=== PATIENT | male | born 1965 | race African-American/Black ===

== ENCOUNTER 2019-05-20 11:11 | Inpatient (IN) | payer OTHER ==
--- NOTE | 2019-05-20 11:34 | BHS.RME ---
Substance Use & Tx History - Substance Use History Alcohol Substance amount: 3-4 pints [place] plus 12 beers Frequency of use: Daily Substance route: Oral Date of Last Use: 05/19/19 (10:30pm) Nicotine Substance amount: 1 pack Frequency of use: Daily Substance route: Smoking Date of Last Use: 05/20/19 Cocaine (Crack) Substance amount: 5 bags Frequency of use: Daily Substance route: Smoking Date of Last Use: 05/19/19 Physical/Psych/Mental Status - Behavior General Behavior: Increased activity (restlessness, agitation) Eye Contact: Normal - Cooperativeness Cooperativeness: Cooperative - Thinking Thought Processes: Tight, Logical, Goal Directed Thought content: Future oriented - Physical Health Problems Is patient presently having any pain?: No Does patient presently have any injuries (include location): No Does patient currently have a fever: No Is patient : No CIWA Nausea/Vomitin Muscle Tremors: 3 Anxiety: 3 Agitation: 3 Paroxysmal Sweats: 3 Orientation: 0-Oriented Tacttile Disturbances: 0-None Auditory Disturbances: 0-None Visual Disturbances: 0-None Headache: 2-Mild (last drank yesterday and was in [facility] overnight where he wasn't able to drink Brought in after blackout and "shakiness") CIWA-Ar Total Score: 17
--- NOTE | 2019-05-20 11:47 | HP ---
CIWA Score Nausea/Vomitin Muscle Tremors: 3 Anxiety: 3 Agitation: 3 Paroxysmal Sweats: 3 Orientation: 0-Oriented Tacttile Disturbances: 0-None Auditory Disturbances: 0-None Visual Disturbances: 0-None Headache: 2-Mild (last drank yesterday and was in [facility] overnight where he wasn't able to drink Brought in after blackout and "shakiness") CIWA-Ar Total Score: 17 - Admission Criteria OASAS Guidelines: Admission for Medically Managed Detox: Requires at least one of the followin. CIWA greater than 12 2. Seizures within the past 24 hours 3. Delirium tremens within the past 24 hours 4. Hallucinations within the past 24 hours 5. Acute intervention needed for co occurring medical disorder 6. Acute intervention needed for co occurring psychiatric disorder 7. Severe withdrawal that cannot be handled at a lower level of care (continued vomiting, continued diarrhea, abnormal vital signs) requiring intravenous medication and/or fluids 8. Admitting History and Physical - Admission Chief Complaint: "I WANT ANOTHER SHOT AND GIVE ME ANOTHER SHOT." History of Present Illness: 56 YEAR OLD MALE WITH HISTORY OF ALCOHOL DEPENDENCE USING 3 PINTS OF VODKA DAILY , LAST USED AT 10 PM LAST NIGHT. HE HAD A BLACKOUT LAST NIGHT. HE DRANK 2 SHOTS ONLY EARLY THIS MORNING AT 3AM. HE IS ALSO USING COCAINE 4-5 GRAMS DAILY SMOKING HE ALSO SMOKES 1PPD FOR MANY YEARS. PMH: HIV DISEASE BUT NON-COMPLIANT IN THE PAST BUT NOW ON DISCOVY, TIVACAY AND PREZISTA AVASCULAR NECROSIS OF LEFT HIP IN THE PAST. WALKING WITH A CANE NOW. HE ALSO HAS NEUROPATHY PSYCH: BIPOLAR/ DEPRESSION ON TRAZODONE, ZOLOFT AND RISPERDAL BUT NONCOMPLIANT History Source: Patient Limitations to Obtaining History: No Limitations Admission ROS S - HPI Exam Limitations: No Limitations - Ebola screening Have you traveled outside of the country in the last 21 days: No Have you had contact with anyone from an Ebola affected area: No Have you been sick,other than usual withdrawal symptoms: No Do you have a fever: No - Review of Systems Constitutional: Chills EENT: reports: No Symptoms Reported Respiratory: reports: No Symptoms reported Cardiac: reports: No Symptoms Reported GI: reports: No Symptoms Reported : reports: No Symptoms Reported Musculoskeletal: reports: No Symptoms Reported Integumentary: reports: No Symptoms Reported Neuro: reports: No Symptoms reported Endocrine: reports: No Symptoms Reported Hematology: reports: No Symptoms Reported Psychiatric: reports: Judgement Intact, Mood/Affect Appropiate, Orientated x3, Anxious Other Systems: Reviewed and Negative Patient History - Patient Medical History Hx Anemia: No Hx Asthma: No Hx Chronic Obstructive Pulmonary Disease (COPD): No Hx Cancer: No Hx Cardiac Disorders: No Hx Congestive Heart Failure: No Hx Hypertension: No Hx Hypercholesterolemia: No Hx Pacemaker: No HX Cerebrovascular Accident: No Hx Seizures: No Hx Dementia: No Hx Diabetes: No Hx Gastrointestinal Disorders: No Hx Liver Disease: No Hx Genitourinary Disorders: No Hx Sexually Transmitted Disorders: No Hx Renal Disease (ESRD): No Hx Thyroid Disease: No Hx Human Immunodeficiency Virus (HIV): Yes Hx Hepatitis C: No Hx Depression: Yes Hx Bipolar Disorder: Yes - Patient Surgical History Past Surgical History: No Hx Neurologic Surgery: No Hx Cataract Extraction: No Hx Cardiac Surgery: No Hx Lung Surgery: No Hx Breast Surgery: No Hx Breast Biopsy: No Hx Abdominal Surgery: No Hx Appendectomy: No Hx Cholecystectomy: No Hx Genitourinary Surgery: No Hx Section: No Hx Orthopedic Surgery: No Hx Hysterectomy: No Anesthesia Reaction: No - PPD History Previous Implant?: Yes Documented Results: Negative w/o proof Implanted On Prior R Admission?: No Date: 03/27/19 (AT [facility]) Results: NEGATIVE PPD to be Administered?: Yes - Smoking Cessation Smoking history: Current every day smoker Have you smoked in the past 12 months: Yes Aproximately how many cigarettes per day: 20 Hx Chewing Tobacco Use: No Initiated information on smoking cessation: Yes 'Breaking Loose' booklet given: 05/20/19 - Substances abused Alcohol Substance route: Oral Amount used: 3 PINTS VODKA Age of first use: 14 Date of last use: 05/20/19 (3 AM) Crack Substance route: Smoking Frequency: Daily Amount used: 4-5 BAGS Age of first use: 20 Date of last use: 05/19/19 Cleared for Admission [facility] - Detox or Rehab [facility] Level of Care: Medically Managed Detox Regimen/Protocol: Librium Claeared for Rehab Admission: No Screened but not Admitted - Documentation of Visit Screened but not Admitted: No Breathalyzer - Breathalyzer Breathalyzer: 0 (DRANK 05/19/19) Urine Drug Screen - Control Is test valid?: Yes - Results Drug screen NEGATIVE: No Urine drug screen results: JAYCEE-Cocaine, BZO-Benzodiazepines Inpatient Rehab Admission - Rehab Decision to Admit Inpatient rehab admission?: No
[2019-05-20] MEDS ORDERED: BISMUTH SUBSALICYLATE 524 MG/30 ML UD PO PRN (11:53)
[2019-05-20] MEDS ORDERED: hydrOXYzine PAMOATE 25 MG CAPSULE (FP) PO PRN (11:53)
[2019-05-20] MEDS ORDERED: MAGNESIUM CITRATE 300 ML BOTTLE PO PRN (11:53)
[2019-05-20] MEDS ORDERED: MAGNESIUM HYDROX 2400MG/30ML ORAL SUSPENSION 30 ML CUP PO PRN (11:53)
[2019-05-20] MEDS ORDERED: ACETAMINOPHEN 325 MG TABLET (FP) PO PRN ×2 (11:53)
[2019-05-20] MEDS ORDERED: IBUPROFEN 400 MG TABLET (FP) PO PRN (11:53)
[2019-05-20] MEDS ORDERED: MAG HYDROX/AL HYDROX/SIMETH 30 ML UNIT-DOSE CUP PO PRN (11:53)
[2019-05-20] MEDS ORDERED: METHOCARBAMOL 500 MG TABLET PO PRN (11:53)
[2019-05-20] MEDS ORDERED: chlordiazePOXIDE HCL 25 MG CAPSULE PO PRN (11:53)
[2019-05-20] MEDS ORDERED: MENTHOL/PHENOL 1 EACH UD MM PRN (11:53)
[2019-05-20 12:20] VITALS: BMI 23.8
--- NOTE | 2019-05-20 12:43 | HP ---
CIWA Score Nausea/Vomitin Muscle Tremors: 3 Anxiety: 3 Agitation: 3 Paroxysmal Sweats: 3 Orientation: 0-Oriented Tacttile Disturbances: 0-None Auditory Disturbances: 0-None Visual Disturbances: 0-None Headache: 2-Mild (last drank yesterday and was in [facility] overnight where he wasn't able to drink Brought in after blackout and "shakiness") CIWA-Ar Total Score: 17 - Admission Criteria OASAS Guidelines: Admission for Medically Managed Detox: Requires at least one of the followin. CIWA greater than 12 2. Seizures within the past 24 hours 3. Delirium tremens within the past 24 hours 4. Hallucinations within the past 24 hours 5. Acute intervention needed for co occurring medical disorder 6. Acute intervention needed for co occurring psychiatric disorder 7. Severe withdrawal that cannot be handled at a lower level of care (continued vomiting, continued diarrhea, abnormal vital signs) requiring intravenous medication and/or fluids 8. Admitting History and Physical - Admission Chief Complaint: Mr. Turner presents to [facility] requesting admission. In his words "I need to get detoxed from alcohol and crack". History of Present Illness: Mr. Turner presents to [facility] requesting admission. In his words "I need to get detoxed from alcohol and crack". He has never been here or to any other detox in the past. He is a 53 yo gentleman with a history of arthritis and GERD. He was seen at [facility] yesterday for alcohol intoxication and referred here for detox. Surg: ulcer Psych: none Substance use history Alcohol: 3-4 pints daily of whiskey, 12 beers per day, each is 16 ounces. First use at the age of 13y, last use yesterday. No history of black outs or seizures. Crack: first use at the age of 18 y, last use yesterday. $50. per day. Smokes. Nicotine: 1ppd, since age 11 y. Denies: heroin, methadone, benzos History Source: Patient Limitations to Obtaining History: No Limitations - Past Medical History Gastrointestinal: Yes: Peptic Ulcer Disease Rheumatology: Yes: Other (arthritis) - Past Surgical History Additional Past Surgical History: ulcer - Smoking History Smoking history: Current every day smoker Have you smoked in the past 12 months: Yes Aproximately how many cigarettes per day: 20 Admission ROS [facility] - HPI Allergies/Adverse Reactions: Allergies Allergy/AdvReac Type Severity Reaction Status Date / Time No Known Allergies Allergy Verified 05/20/19 11:53 Exam Limitations: No Limitations - Ebola screening Have you traveled outside of the country in the last 21 days: No Have you had contact with anyone from an Ebola affected area: No Have you been sick,other than usual withdrawal symptoms: No Do you have a fever: No - Review of Systems Constitutional: No Symptoms Reported EENT: reports: No Symptoms Reported Respiratory: reports: No Symptoms reported Cardiac: reports: No Symptoms Reported GI: reports: No Symptoms Reported : reports: No Symptoms Reported Musculoskeletal: reports: Joint Pain (chronic hand joint pain) Integumentary: reports: Dryness Neuro: reports: No Symptoms reported Endocrine: reports: No Symptoms Reported Hematology: reports: No Symptoms Reported Psychiatric: reports: Anxious Patient History - Patient Medical History Hx Anemia: No Hx Asthma: No Hx Chronic Obstructive Pulmonary Disease (COPD): No Hx Cancer: No Hx Cardiac Disorders: No Hx Congestive Heart Failure: No Hx Hypertension: No Hx Hypercholesterolemia: No Hx Pacemaker: No HX Cerebrovascular Accident: No Hx Seizures: No Hx Dementia: No Hx Diabetes: No Hx Gastrointestinal Disorders: No Hx Liver Disease: No Hx Genitourinary Disorders: No Hx Sexually Transmitted Disorders: No Hx Renal Disease (ESRD): No Hx Thyroid Disease: No Hx Human Immunodeficiency Virus (HIV): Yes Hx Hepatitis C: No Hx Depression: Yes Hx Bipolar Disorder: Yes - Patient Surgical History Past Surgical History: No Hx Neurologic Surgery: No Hx Cataract Extraction: No Hx Cardiac Surgery: No Hx Lung Surgery: No Hx Breast Surgery: No Hx Breast Biopsy: No Hx Abdominal Surgery: No Hx Appendectomy: No Hx Cholecystectomy: No Hx Genitourinary Surgery: No Hx Section: No Hx Orthopedic Surgery: No Hx Hysterectomy: No Anesthesia Reaction: No - PPD History Previous Implant?: Yes Documented Results: Negative w/o proof Implanted On Prior R Admission?: No Date: 03/27/19 (AT [facility]) Results: NEGATIVE - Smoking Cessation Smoking history: Current every day smoker Have you smoked in the past 12 months: Yes Aproximately how many cigarettes per day: 20 Hx Chewing Tobacco Use: No Initiated information on smoking cessation: Yes 'Breaking Loose' booklet given: 05/20/19 - Substances abused Alcohol Substance route: Oral Amount used: 3 PINTS VODKA Age of first use: 14 Date of last use: 05/20/19 (3 AM) Crack Substance route: Smoking Frequency: Daily Amount used: 4-5 BAGS Age of first use: 20 Date of last use: 05/19/19 Admission Physical Exam [facility] - Physical General Appearance: Yes: Disheveled HEENTM: Yes: EOMI, Hearing grossly Normal Respiratory: Yes: Lungs Clear, Normal Breath Sounds Neck: Yes: Within Normal Limits, Other (superficial scratches on posterior neck , pt states he has been itchy) Breast: Yes: Breast Exam Deferred Cardiology: Yes: Regular Rate, S1, S2 Abdominal: Yes: Normal Bowel Sounds, Non Tender, Flat, Soft Genitourinary: Yes: Other (deferred) Back: Yes: Normal Inspection Musculoskeletal: Yes: Joint swelling (most hand joints) Extremities: Yes: Within Normal Limits, Other (unable to fully extend right knee , remote hx fracture right tibia) Neurological: Yes: Fully Oriented, Alert Integumentary: Yes: Within Normal Limits Lymphatic: Yes: Within Normal Limits - Diagnostic (1) Alcohol dependence with uncomplicated withdrawal Current Visit: Yes Status: Acute (2) Cocaine abuse Current Visit: Yes Status: Chronic (3) Arthritis Current Visit: No Status: Chronic (4) Peptic ulcer disease Current Visit: No Status: Chronic Cleared for Admission [facility] - Detox or Rehab [facility] Level of Care: Medically Managed Breathalyzer - Breathalyzer Breathalyzer: 0 Urine Drug Screen - Test Device Lot number: [id number] Expiration date: 03/01/21 - Control Is test valid?: Yes - Results Drug screen NEGATIVE: No Urine drug screen results: JAYCEE-Cocaine Inpatient Rehab Admission - Rehab Decision to Admit Inpatient rehab admission?: No
[2019-05-20] MEDS: chlordiazePOXIDE HCL 25 MG CAPSULE PO SCH ×3 (14:23→22:35)
[2019-05-20] MEDS: NICOTINE 14 MG/24 HOURS TOPICAL PATCH TD SCH (14:24)
--- NOTE | 2019-05-20 14:28 | CONSULT ---
[facility] Psychiatric Consult - Data Date of interview: 05/20/19 Admission source: [facility] Identifying data: Mr Turner is a 53 yeas oldc single Black male, father of 2 children, unemployed with no source of income, domiciled seeking detox treatment for alcohol and cocaine Substance Abuse History: Reports history of alcohol and crack cocaine use. Refer to addiction counselor's summay for further information Medical History: Significant for GERD, arthritis, history of fracture right tibia and surgery for bleeding ulcer. Smokes cigarettes 1 ppd Psychiatric History: Denies history of previous treatment. However, reports sleeping poorly Physical/Sexual Abuse/Trauma History: Denies history of abuse as a child or DV relationship as an adult Mental Status Exam - Mental Status Exam Alert and Oriented to: Time, Place, Person Cognitive Function: Fair Patient Appearance: Disheveled Mood: Euthymic Patient Behavior: Cooperative Speech Pattern: Clear Voice Loudness: Normal Thought Process: Intact, Goal Oriented Hallucinations: Denies Suicidal Ideation: Denies Homicidal Ideation: Denies Insight/Judgement: Poor Sleep: Poorly Appetite: Good Muscle strength/Tone: Normal Gait/Station: Normal Psychiatric Findings - Problem List ([place] 1, 2,3) (1) Substance-induced sleep disorder Current Visit: Yes Status: Acute (2) Alcohol dependence with uncomplicated withdrawal Current Visit: Yes Status: Acute (3) Cocaine dependence Current Visit: Yes Status: Acute (4) Nicotine dependence Current Visit: Yes Status: Chronic (5) GERD (gastroesophageal reflux disease) Current Visit: Yes Status: Chronic (6) Arthritis Current Visit: Yes Status: Chronic - Initial Treatment Plan Initial Treatment Plan: 1) Start Melatonin 5 mg po HS prn for insomnia. 2) Continue inpatient detoxification
--- NOTE | 2019-05-20 16:29 | EKG ---
Test Reason : Blood Pressure : / mmHG Vent. Rate : 067 BPM Atrial Rate : 067 BPM P-R Int : 168 ms QRS Dur : 094 ms QT Int : 408 ms P-R-T Axes : 067 051 060 degrees QTc Int : 431 ms NORMAL SINUS RHYTHM NORMAL ECG NO PREVIOUS ECGS AVAILABLE Confirmed by MD MARIE, RUDY ([id number]) on 05/20/2019 4:29:12 PM Referred By: Confirmed By:RUDY SALAZAR MD
[2019-05-20] MEDS: THIAMINE HCL 100 MG TABLET (FP) PO SCH (22:35)
[2019-05-21] MEDS: chlordiazePOXIDE HCL 25 MG CAPSULE PO SCH ×4 (05:10→22:11)
[2019-05-21] MEDS: NICOTINE 14 MG/24 HOURS TOPICAL PATCH TD SCH (10:24)
[2019-05-21] MEDS: PRENATAL VITAMINS W/ FOLIC ACID TABLET (FP) PO SCH (10:24)
[2019-05-21] MEDS ORDERED: TRIMETHOBENZAMIDE HCL 200MG/2ML INJ IM PRN (10:39)
--- NOTE | 2019-05-21 11:11 | PN ---
S CIWA - CIWA Score Nausea/Vomitin Muscle Tremors: 2 Anxiety: 2 Agitation: 2 Paroxysmal Sweats: No Perspiration Orientation: 0-Oriented Tacttile Disturbances: 1-Very Mild Itch/Numbness Auditory Disturbances: 0-None Visual Disturbances: 0-None Headache: 2-Mild CIWA-Ar Total Score: 11 [facility] Progress Note (SOAP) Subjective: alert,irritable,anxious,interrupted sleep,tremor Objective: 05/21/19 11:10 Vital Signs Temperature 98.4 F 05/21/19 08:51 Pulse Rate 101 H 05/21/19 08:51 Respiratory Rate 18 05/21/19 08:51 Blood Pressure 126/60 05/21/19 08:51 O2 Sat by Pulse Oximetry (%) labs pending Assessment: 05/21/19 11:11 withdrawal symptom Plan: continue detox librium regimen ,tigan 200 mgs im q 8 hrs prn,pepcid 20 mgs po daily
[2019-05-21 12:06] LABS: ALBUMIN 3.9 g/dl (3.4-5.0); BILIRUBIN,TOTAL 0.4 mg/dL (0.2-1); BLOOD UREA NITROGEN 11.3 mg/dL (7-18); CALCIUM 9.1 mg/dL (8.5-10.1); CREATININE 0.8 mg/dL (0.55-1.3); POTASSIUM 4.3 mmol/L (3.5-5.1); TOT PROT 7.7 g/dl (6.4-8.2)
[2019-05-21 12:28] LABS: HEMATOCRIT 37.9 % (35.4-49); HEMOGLOBIN 12.7 GM/dL (11.7-16.9); MCH 32.4 pg (25.7-33.7); MCHC 33.4 g/dl (32.0-35.9); MEAN CELL VOLUME 96.8 fl (80-96); MEAN PLT VOLUME 8.9 fl (7.5-11.1); PLATELET COUNT 234 K/MM3 (134-434); RBC 3.91 M/mm3 (4.00-5.60); RDW 14.8 % (11.9-15.9); WHITE BLOOD COUNT 6.1 K/mm3 (4.0-10.0)
[2019-05-21] MEDS: FAMOTIDINE 20 MG TABLET PO SCH (12:37)
[2019-05-21] MEDS: THIAMINE HCL 100 MG TABLET (FP) PO SCH (22:11)
[2019-05-21] MEDS: MELATONIN 5 MG TABLETS PO PRN (22:11)
[2019-05-22] MEDS: chlordiazePOXIDE HCL 25 MG CAPSULE PO SCH ×4 (05:23→22:10)
--- NOTE | 2019-05-22 08:59 | PN ---
S CIWA - CIWA Score Nausea/Vomitin-Mild Nausea/No Vomiting Muscle Tremors: 2 Anxiety: 2 Agitation: 2 Paroxysmal Sweats: No Perspiration Orientation: 0-Oriented Tacttile Disturbances: 0-None Auditory Disturbances: 0-None Visual Disturbances: 0-None Headache: 1-Very Mild CIWA-Ar Total Score: 8 [facility] Progress Note (SOAP) Subjective: alert,irritable,anxious,interrupted sleep,no vomiting today Objective: 05/22/19 08:58 Vital Signs Temperature 98 F 05/22/19 05:20 Pulse Rate 90 05/22/19 05:20 Respiratory Rate 17 05/22/19 05:20 Blood Pressure 115/62 05/22/19 05:20 O2 Sat by Pulse Oximetry (%) 05/22/19 08:58 Laboratory Last Values WBC 6.1 K/mm3 (4.0-10.0) 05/21/19 08:00 RBC 3.91 M/mm3 (4.00-5.60) L 05/21/19 08:00 Hgb 12.7 GM/dL (11.7-16.9) 05/21/19 08:00 Hct 37.9 % (35.4-49) 05/21/19 08:00 MCV 96.8 fl (80-96) H 05/21/19 08:00 MCH 32.4 pg (25.7-33.7) 05/21/19 08:00 MCHC 33.4 g/dl (32.0-35.9) 05/21/19 08:00 RDW 14.8 % (11.9-15.9) 05/21/19 08:00 Plt Count 234 K/MM3 (134-434) 05/21/19 08:00 MPV 8.9 fl (7.5-11.1) 05/21/19 08:00 Sodium 140 mmol/L (136-145) 05/21/19 08:00 Potassium 4.3 mmol/L (3.5-5.1) 05/21/19 08:00 Chloride 108 mmol/L (98-107) H 05/21/19 08:00 Carbon Dioxide 27 mmol/L (21-32) 05/21/19 08:00 Anion Gap 6 MMOL/L (8-16) L 05/21/19 08:00 BUN 11.3 mg/dL (7-18) 05/21/19 08:00 Creatinine 0.8 mg/dL (0.55-1.3) 05/21/19 08:00 Est GFR (CKD-EPI)AfAm 118.20 05/21/19 08:00 Est GFR (CKD-EPI)NonAf 101.99 05/21/19 08:00 Random Glucose 82 mg/dL (74-106) 05/21/19 08:00 Calcium 9.1 mg/dL (8.5-10.1) 05/21/19 08:00 Total Bilirubin 0.4 mg/dL (0.2-1) 05/21/19 08:00 AST 39 U/L (15-37) H 05/21/19 08:00 ALT 45 U/L (13-61) 05/21/19 08:00 Alkaline Phosphatase 60 U/L (45-117) 05/21/19 08:00 Total Protein 7.7 g/dl (6.4-8.2) 05/21/19 08:00 Albumin 3.9 g/dl (3.4-5.0) 05/21/19 08:00 RPR Titer Nonreactive (NONREACTIVE) 05/21/19 08:00 Assessment: 05/22/19 08:58 withdrawal symptom Plan: continue detox librium regimen,patient denied history of hiv,stated last tested 2 months ago is negative,did not want to be tested for hiv, insisted that all test for hiv hes been negative in the past
[2019-05-22] MEDS: FAMOTIDINE 20 MG TABLET PO SCH (10:09)
[2019-05-22] MEDS: PRENATAL VITAMINS W/ FOLIC ACID TABLET (FP) PO SCH (10:09)
[2019-05-22] MEDS: NICOTINE 14 MG/24 HOURS TOPICAL PATCH TD SCH (10:11)
[2019-05-22] MEDS: THIAMINE HCL 100 MG TABLET (FP) PO SCH (22:10)
[2019-05-23] MEDS ORDERED: chlordiazePOXIDE HCL 10 MG CAPSULE PO PRN
[2019-05-23] MEDS: chlordiazePOXIDE HCL 10 MG CAPSULE PO SCH ×4 (05:40→22:25)
--- NOTE | 2019-05-23 08:55 | PN ---
[facility] CIWA - CIWA Score Nausea/Vomitin-Mild Nausea/No Vomiting Muscle Tremors: 1-None Visible, but [place] Anxiety: 2 Agitation: 2 Paroxysmal Sweats: No Perspiration Orientation: 0-Oriented Tacttile Disturbances: 0-None Auditory Disturbances: 0-None Visual Disturbances: 0-None Headache: 1-Very Mild CIWA-Ar Total Score: 7 S Progress Note (SOAP) Subjective: alert,irritable,anxious,interrupted sleep,pain in the body Objective: 05/23/19 08:54 Vital Signs Temperature 98.1 F 05/23/19 06:21 Pulse Rate 82 05/23/19 06:21 Respiratory Rate 16 05/23/19 06:21 Blood Pressure 115/62 05/23/19 06:21 O2 Sat by Pulse Oximetry (%) Assessment: 05/23/19 08:54 withdrawal symptom Plan: continue detox librium regimen
[2019-05-23] MEDS: PRENATAL VITAMINS W/ FOLIC ACID TABLET (FP) PO SCH (10:04)
[2019-05-23] MEDS: FAMOTIDINE 20 MG TABLET PO SCH (10:05)
[2019-05-23] MEDS: NICOTINE 14 MG/24 HOURS TOPICAL PATCH TD SCH (10:05)
[2019-05-23] MEDS: THIAMINE HCL 100 MG TABLET (FP) PO SCH (22:25)
[2019-05-24] MEDS: chlordiazePOXIDE HCL 10 MG CAPSULE PO SCH ×2 (05:40→17:30)
[2019-05-24] MEDS: NICOTINE 14 MG/24 HOURS TOPICAL PATCH TD SCH (10:26)
[2019-05-24] MEDS: PRENATAL VITAMINS W/ FOLIC ACID TABLET (FP) PO SCH (10:26)
[2019-05-24] MEDS: FAMOTIDINE 20 MG TABLET PO SCH (10:26)
--- NOTE | 2019-05-24 14:25 | PN ---
S CIWA - CIWA Score Nausea/Vomitin-No Nausea/No Vomiting Muscle Tremors: 3 Anxiety: 3 Agitation: 1-Slight > Activity Paroxysmal Sweats: No Perspiration Orientation: 0-Oriented Tacttile Disturbances: 0-None Auditory Disturbances: 0-None Visual Disturbances: 0-None Headache: 0-None Present CIWA-Ar Total Score: 7 [facility] Progress Note (SOAP) Subjective: Anxious, Tremors. Objective: PATIENT A & O X 3. IN NO ACUTE DISTRESS. 05/24/19 14:23 Vital Signs Temperature 97.9 F 05/24/19 12:50 Pulse Rate 81 05/24/19 12:50 Respiratory Rate 18 05/24/19 12:50 Blood Pressure 123/66 05/24/19 12:50 O2 Sat by Pulse Oximetry (%) Laboratory Tests 05/21/19 05/21/19 05/21/19 08:00 08:00 08:00 WBC 6.1 RBC 3.91 L Hgb 12.7 Hct 37.9 MCV 96.8 H MCH 32.4 MCHC 33.4 RDW 14.8 Plt Count 234 MPV 8.9 Sodium 140 Potassium 4.3 Chloride 108 H Carbon Dioxide 27 Anion Gap 6 L BUN 11.3 Creatinine 0.8 Est GFR (CKD-EPI)AfAm 118.20 Est GFR (CKD-EPI)NonAf 101.99 Random Glucose 82 Calcium 9.1 Total Bilirubin 0.4 AST 39 H ALT 45 Alkaline Phosphatase 60 Total Protein 7.7 Albumin 3.9 RPR Titer Nonreactive LABS NOTED. Assessment: 05/24/19 14:24 WITHDRAWAL SYMPTOMS. Plan: CONTINUE DETOX. PATIENT SCHEDULED FOR D/C FROM DETOX UNIT TOMORROW.
[2019-05-24] MEDS: MELATONIN 5 MG TABLETS PO PRN (22:20)
[2019-05-24] MEDS: THIAMINE HCL 100 MG TABLET (FP) PO SCH (22:21)
[2019-05-25] MEDS ORDERED: chlordiazePOXIDE HCL 10 MG CAPSULE PO ONE (05:00)
[2019-05-25] MEDS: NICOTINE 14 MG/24 HOURS TOPICAL PATCH TD SCH (10:22)
[2019-05-25] MEDS: PRENATAL VITAMINS W/ FOLIC ACID TABLET (FP) PO SCH (10:22)
[2019-05-25] MEDS: FAMOTIDINE 20 MG TABLET PO SCH (10:22)
--- NOTE | 2019-05-25 13:08 | DS ---
[facility] Detox Discharge Summary Admission Date: 05/20/19 Discharge Date: 05/25/19 - History Present History: Alcohol Dependence, Cocaine Dependence Additional Comments: Patient completed detox successfully and discharged safely. Patient instructed to follow up with PCP within one week. Pertinent Past History: HIV Avascular necrosis left hip: uses cane for ambulation - Physical Exam Results Vital Signs: Vital Signs Temperature 98.1 F 05/25/19 09:00 Pulse Rate 94 H 05/25/19 09:00 Respiratory Rate 19 05/25/19 09:00 Blood Pressure 139/78 05/25/19 09:00 O2 Sat by Pulse Oximetry (%) Elevated b/p, denies htn, could be r/t withdrawal, follow up with PCP for monitoring Pertinent Admission Physical Exam Findings: Withdrawal sxs Laboratory Tests 05/21/19 05/21/19 05/21/19 08:00 08:00 08:00 WBC 6.1 RBC 3.91 L Hgb 12.7 Hct 37.9 MCV 96.8 H MCH 32.4 MCHC 33.4 RDW 14.8 Plt Count 234 MPV 8.9 Sodium 140 Potassium 4.3 Chloride 108 H Carbon Dioxide 27 Anion Gap 6 L BUN 11.3 Creatinine 0.8 Est GFR (CKD-EPI)AfAm 118.20 Est GFR (CKD-EPI)NonAf 101.99 Random Glucose 82 Calcium 9.1 Total Bilirubin 0.4 AST 39 H ALT 45 Alkaline Phosphatase 60 Total Protein 7.7 Albumin 3.9 RPR Titer Nonreactive Labs reviewed - Treatment Hospital Course: Detox Protocol Followed, Detoxed Safely, Responded well, Discharged Condition Good - Medication Discharge Medications: Ambulatory Orders Famotidine 20 mg PO BID 05/20/19 Folic Acid - 1 mg PO DAILY 05/20/19 Meloxicam 15 mg PO DAILY 05/20/19 Thiamine HCl [Vitamin B-1] 50 mg PO DAILY 05/20/19 - Diagnosis (1) HIV disease Current Visit: Yes Status: Chronic (2) Avascular necrosis of bone of left hip Current Visit: Yes Status: Chronic (3) Depression Current Visit: Yes Status: Chronic (4) Alcohol dependence with uncomplicated withdrawal Current Visit: Yes Status: Acute (5) Cocaine dependence Current Visit: Yes Status: Acute (6) Nicotine dependence Current Visit: Yes Status: Chronic (7) Elevated blood pressure reading without diagnosis of hypertension Current Visit: Yes Status: Acute - AMA Did Patient Leave Against Medical Advice: No
[2019-05-25 13:16] VITALS: BP 130/82; PULSE 84; TEMP 97.9
== END 2019-05-25 15:10 | disposition home or self-care (01) | DRG 774 ==
LOC: YASAS 11:11 → Y6N 13:33
PROVIDERS: ADMIT Allergy & Immunology; ATTEND Allergy & Immunology
PROC: HZ2ZZZZ Detoxification Services for Substance Abuse Treatment (ICD-10-PCS; principal; 2019-05-20)
DX: F10.230 Alcohol dependence with withdrawal, uncomplicated (principal); F14.20 Cocaine dependence, uncomplicated; F17.210 Nicotine dependence, cigarettes, uncomplicated; F32.9 Major depressive disorder, single episode, unspecified; F19.282 Other psychoactive substance dependence with psychoactive substance-induced sleep disorder; B20 Human immunodeficiency virus [HIV] disease; G62.9 Polyneuropathy, unspecified; K21.9 Gastro-esophageal reflux disease without esophagitis; M87.852 Other osteonecrosis, left femur; M12.9 Arthropathy, unspecified; R03.0 Elevated blood-pressure reading, without diagnosis of hypertension; Z99.89 Dependence on other enabling machines and devices; Z87.11 Personal history of peptic ulcer disease; Z88.0 Allergy status to penicillin
CPT/HCPCS: 36415; 71046-TC-FY; 80053; 85027; 86593; 93005; 93010